=== PATIENT | male | born 1990 | race Native Hawaiian/Other Pacific Islander ===

== ENCOUNTER 2020-05-10 10:49 | Emergency (ER) | payer BC ==
[~2020-05-10] VITALS: Ht 177.8 cm; Wt 108.9 kg
[~2020-05-10 10:49] MED LIST: ONDA4TAB3 PO
[2020-05-10 10:53] VITALS: TEMP 97.3
[2020-05-10 12:20] VITALS: BP 155/90
== END 2020-05-10 12:20 | disposition home or self-care (01) ==
LOC: ED 10:49
DX: T78.49XA Other allergy, initial encounter (principal)
CPT/HCPCS: 36415; 96360; 96375; 96376; 99284; J2405; J2930

== ENCOUNTER 2021-03-02 08:30 | Outpatient (CLI) | payer BC | END 2021-03-02 19:22 | disposition home or self-care (01) | LOC: CT 08:30 | PROVIDERS: ATTEND Physician Assistant | DX: R42 Dizziness and giddiness (principal); R53.83 Other fatigue; R00.2 Palpitations; R51.9 Headache, unspecified; R55 Syncope and collapse ==